=== PATIENT | female | born 1995 ===

== ENCOUNTER 2017-03-14 20:40 | Emergency (ER) | payer OTHER ==
[2017-03-14 21:32] VITALS: BMI 25.8
[2017-03-14 21:35] VITALS: TEMP 98.5
--- NOTE | 2017-03-14 22:11 | ED PDOC ---
Arrival/HPI - General Chief Complaint: GI Problem Time Seen by Provider: 03/14/17 21:43 Historian: Patient - History of Present Illness Narrative History of Present Illness (Text): 03/14/17 22:11 Tamia Melgoza is a 22 year old female who presents to the Emergency department complaining of hematemesis today. Patient states she has been experiencing hematemeisis since yesterday with associated upper abdominal pain. Patient denies any fever, chills, chest pain, shortness of breath, diarrhea, urinary symptoms, back pain, neck pain, headache, dizziness, or any other complaints. Time/Duration: Other (today) Symptom Onset: Gradual Symptom Course: Unchanged Activities at Onset: Rest, Light Context: Home Past Medical History - Provider Review Nursing Documentation Reviewed: Yes - Reproductive Menopause: No - Cardiac Hx Cardiac Disorders: No - Pulmonary Hx Respiratory Disorders: No - Neurological Hx Neurological Disorder: No - HEENT Hx HEENT Disorder: No - Renal Hx Renal Disorder: No - Endocrine/Metabolic Hx Endocrine Disorders: No - Hematological/Oncological Hx Blood Disorders: No - Integumentary Hx Dermatological Disorder: No - Musculoskeletal/Rheumatological Hx Musculoskeletal Disorders: No - Gastrointestinal Hx Gastrointestinal Disorders: Yes Hx Gastritis: Yes - Genitourinary/Gynecological Hx Genitourinary Disorders: No - Psychiatric Hx Psychophysiologic Disorder: No Hx Substance Use: No - Surgical History Hx Orthopedic Surgery: Yes (knee 2014) - Anesthesia Hx Anesthesia: Yes Hx Anesthesia Reactions: No Hx Malignant Hyperthermia: No Family/Social History - Physician Review Nursing Documentation Reviewed: Yes Family/Social History: No Known Family HX Smoking Status: Never Smoked Hx Alcohol Use: No Hx Substance Use: No Allergies/Home Meds Allergies/Adverse Reactions: Allergies No Known Allergies Allergy (Verified 03/14/17 22:02) Review of Systems - Physician Review All systems were reviewed & negative as marked: Yes - Review of Systems Constitutional: Normal. absent: Fevers Eyes: Normal ENT: Normal Respiratory: Normal. absent: SOB, Cough Cardiovascular: Normal. absent: Chest Pain Gastrointestinal: Abdominal Pain, Hematemesis Genitourinary Female: Normal. absent: Dysuria, Frequency, Hematuria, Urine Output Changes Musculoskeletal: Normal. absent: Back Pain, Neck Pain Skin: Normal. absent: Rash Neurological: Normal. absent: Headache, Dizziness Endocrine: Normal Hemo/Lymphatic: Normal Psychiatric: Normal Physical Exam Vital Signs Reviewed: Yes Vital Signs Temp Pulse Resp BP Pulse Ox 03/15/17 01:13 79 18 121/63 98 03/14/17 23:00 75 18 115/71 99 03/14/17 21:35 123/82 03/14/17 21:32 98.5 F 79 16 98 Temperature: Afebrile Blood Pressure: Normal Pulse: Regular Respiratory Rate: Normal Appearance: Positive for: Well-Appearing, Non-Toxic, Comfortable Pain Distress: None Mental Status: Positive for: Alert and Oriented X 3 - Systems Exam Head: Present: Atraumatic, Normocephalic Pupils: Present: PERRL Extroacular Muscles: Present: EOMI Conjunctiva: Present: Normal Mouth: Present: Moist Mucous Membranes Neck: Present: Normal Range of Motion Respiratory/Chest: Present: Clear to Auscultation, Good Air Exchange. No: Respiratory Distress, Accessory Muscle Use Cardiovascular: Present: Regular Rate and Rhythm, Normal S1, S2. No: Murmurs Abdomen: Present: Normal Bowel Sounds. No: Tenderness, Distention, Peritoneal Signs Back: Present: Normal Inspection Upper Extremity: Present: Normal Inspection. No: Cyanosis, Edema Lower Extremity: Present: Normal Inspection. No: Edema Neurological: Present: GCS=15, CN II-XII Intact, Speech Normal Skin: Present: Warm, Dry, Normal Color. No: Rashes Psychiatric: Present: Alert, Oriented x 3, Normal Insight, Normal Concentration Medical Decision Making ED Course and Treatment: 03/14/17 22:11 Impression: 22 year old female complaining of upper abdominal pain and hematemesis today. Plan: -- EKG -- Labs, amylase, lipase, cardiac enzymes, blood type and screen -- Zofran -- NG tube -- Reassess and disposition Progress Notes: Reviewed EKG, NSR at 71 bpm. Sinus arrhythmia. No acute changes. 03/15/17 01:04 Labs within normal limits, no blood noted in NG tube output. On re-evaluation, the patient feels better and is in no acute distress. I have discussed the results and plan with the patient, who expresses understanding. Patient in agreement with plan to discharged home. Patient is stable for discharge. Patient was instructed to follow up with physician/clinic in 1-2 days or return if symptoms worsen or new concerning symptoms arise. Re-evaluation Time: 01:07 Reassessment Condition: Re-examined, Improved - Lab Interpretations Lab Results: 03/14/17 22:35 03/14/17 22:35 Lab Results 03/14/17 23:10: Blood Type Confirm A POSITIVE 03/14/17 22:35: Blood Type A POSITIVE, Antibody Screen Negative, BBK History Checked No verified bt 03/14/17 22:35: Sodium 139, Potassium 3.9, Chloride 103, Carbon Dioxide 26, Anion Gap 14, BUN 9, Creatinine 0.6, Est GFR ( Amer) > 60, Est GFR (Non- Af Amer) > 60, Random Glucose 100, Calcium 9.1, Total Bilirubin 0.5, AST 23, ALT 30, Alkaline Phosphatase 80, Lactate Dehydrogenase 417, Total Creatine Kinase 91, Troponin I < 0.01, Total Protein 7.4, Albumin 3.8, Globulin 3.6, Albumin/Globulin Ratio 1.1, Amylase 109, Lipase 192 03/14/17 22:35: PT 10.2, INR 0.94, APTT 27.2 03/14/17 22:35: WBC 6.3, RBC 4.45, Hgb 13.7, Hct 39.0, MCV 87.6, MCH 30.8, MCHC 35.1, RDW 12.4, Plt Count 283, MPV 10.0, Gran % 45.5 L, Lymph % (Auto) 45.1 H, Ida % (Auto) 7.0 H, Eos % (Auto) 1.9, Baso % (Auto) 0.5, Gran # 2.86, Lymph # 2.8, Ida # 0.4, Eos # 0.1, Baso # 0.03 I have reviewed the lab results: Yes - EKG Interpretation Interpreted by ED Physician: Yes Type: 12 lead EKG - Medication Orders Current Medication Orders: Discontinued Medications Morphine Sulfate (Morphine) 2 mg IVP STAT STA Stop: 03/14/17 23:30 Last Admin: 03/15/17 00:21 Dose: 2 mg Ondansetron HCl (Zofran Inj) 4 mg IVP STAT STA Stop: 03/14/17 22:13 Last Admin: 03/14/17 23:02 Dose: Not Given Non-Admin Reason: Patient Refused Ondansetron HCl (Zofran Inj) Confirm Administered Dose 4 mg .ROUTE .STK-MED ONE Stop: 03/14/17 22:21 Last Admin: 03/15/17 00:21 Dose: Pantoprazole Sodium (Protonix Inj) 40 mg IVP ONCE STA Stop: 03/14/17 23:50 Last Admin: 03/15/17 00:21 Dose: 40 mg - Cassieibe Statement The provider has reviewed the documentation as recorded by the Cassieibrashad Pham All medical record entries made by the Cassieibrashad were at my direction and personally dictated by me. I have reviewed the chart and agree that the record accurately reflects my personal performance of the history, physical exam, medical decision making, and the department course for this patient. I have also personally directed, reviewed, and agree with the discharge instructions and disposition. Disposition/Present on Arrival - Present on Arrival Any Indicators Present on Arrival: No History of DVT/PE: No History of Uncontrolled Diabetes: No Urinary Catheter: No History of Decub. Ulcer: No History Surgical Site Infection Following: None - Disposition Have Diagnosis and Disposition been Completed?: Yes Diagnosis: Gastritis Disposition: HOME/ ROUTINE Disposition Time: 01:08 Condition: GOOD Discharge Instructions (ExitCare): Gastritis (ED) Prescriptions: Pantoprazole Sodium [Protonix] 40 mg PO DAILY #14 ect Ondansetron [Zofran Odt] 8 mg PO TID PRN #10 odt PRN Reason: Nausea/Vomiting
[2017-03-14 22:51] LABS: ADD MANUAL DIFF? NO
[2017-03-14 22:54] LABS: BASO # 0.03 K/mm3 (0.0-2.0); BASO % 0.5 % (0.0-3.0); EOS # 0.1 (0.0-0.7); EOS % 1.9 % (1.5-5.0); GRAN # 2.86 (1.4-6.5); GRAN % 45.5 % (50.0-68.0); LYMPH # 2.8 (1.2-3.4); LYMPH % 45.1 % (22.0-35.0); MEAN CELL VOLUME 87.6 fL (80.0-105.0); MEAN CORPUSCULAR HEMOGLOBIN 30.8 pg (25.0-35.0); MEAN CORPUSCULAR HGB CONC 35.1 g/dl (31.0-37.0); MONO # 0.4 (0.1-0.6); PLATELET COUNT 283 10^3/uL (120.0-450.0); RED CELL DISTRIBUTION WIDTH 12.4 % (11.5-14.5); WHITE BLOOD COUNT 6.3 10^3/ul (4.5-11.0)
[2017-03-14 23:06] LABS: INR 0.94 (0.93-1.08); PARTIAL THROMBOPLASTIN TIME 27.2 Seconds (23.7-30.8)
[2017-03-14 23:25] LABS: ALB/GLOB RATIO 1.1 (1.1-1.8); ALKALINE PHOSPHATASE 80 U/L (38-133); ALT/SGPT 30 U/L (7-56); AMYLASE 109 U/L (35-125); AST/SGOT 23 U/L (15-39); BILIRUBIN,TOTAL 0.5 mg/dL (0.2-1.3); BLOOD UREA NITROGEN 9 mg/dL (7-21); CALCIUM 9.1 mg/dL (8.4-10.5); CARBON DIOXIDE 26 mmol/L (21-33); CHLORIDE 103 mmol/L (98-107); GFR AFRICAN-AMERICAN > 60; GLUCOSE,RANDOM 100 mg/dL (70-110); LIPASE 192 U/L (23-300); POTASSIUM 3.9 mmol/L (3.6-5.0); SODIUM 139 mmol/L (132-148); TOTAL PROTEIN 7.4 g/dL (5.8-8.3)
[2017-03-14] MEDS ORDERED: Morphine 2 mg/ml ISec IVP STA (23:29)
[2017-03-14 23:46] LABS: TROPONIN I < 0.01 ng/mL
[2017-03-15 00:56] VITALS: RESP 18
[2017-03-15 01:14] VITALS: BP 121/63; PULSE 79; O2SAT 98
--- NOTE | 2017-03-15 22:11 | CARD ---
APPROVED REPORT EKG Measurement Heart [id number] <Conclusion> Normal sinus rhythm with sinus arrhythmia Cannot rule out Anterior infarct, age undetermined Abnormal ECG
== END 2017-03-15 01:15 | disposition home or self-care (01) ==
LOC: ED 20:40
DX: K29.70 Gastritis, unspecified, without bleeding (principal)
CPT/HCPCS: 80053; 82150; 82550; 83615; 83690; 84484; 85025; 85610; 85730; 86850; 86900; 93005; 96374; 96375; 99285; C9113; J2270

== ENCOUNTER 2017-05-20 18:46 | Emergency (ER) | payer OTHER ==
[2017-05-20 19:15] VITALS: TEMP 98; BMI 27.4
[2017-05-20 21:38] VITALS: BP 105/68; PULSE 72; RESP 18; O2SAT 99
--- NOTE | 2017-05-20 21:57 | ED PDOC ---
Arrival/HPI - General Chief Complaint: Lower Extremity Problem/Injury Time Seen by Provider: 05/20/17 19:27 Historian: Patient - History of Present Illness Narrative History of Present Illness (Text): 05/20/17 21:42 A 22 year old female presents to the emergency department complaining of right knee pain and worsening swelling over the past few days. Patient denies any fall , trauma, fever, chills, nausea, vomiting, diarrhea, abdominal pain, urinary symptoms, chest pain, shortness of breath, cough or any other complaints. Patient reports a history of patellar repair 2 years ago in [facility]. Time/Duration: < week Symptom Course: Worsening Quality: Other Context: Other Past Medical History - Provider Review Nursing Documentation Reviewed: Yes - Cardiac Hx Cardiac Disorders: No - Pulmonary Hx Respiratory Disorders: No - Neurological Hx Neurological Disorder: No - HEENT Hx HEENT Disorder: No - Renal Hx Renal Disorder: No - Endocrine/Metabolic Hx Endocrine Disorders: No - Hematological/Oncological Hx Blood Disorders: No - Integumentary Hx Dermatological Disorder: No - Musculoskeletal/Rheumatological Hx Musculoskeletal Disorders: No - Gastrointestinal Hx Gastrointestinal Disorders: Yes Hx Gastritis: Yes Other/Comment: GI Bleed - Genitourinary/Gynecological Hx Genitourinary Disorders: No - Psychiatric Hx Psychophysiologic Disorder: No Hx Substance Use: No - Surgical History Hx Orthopedic Surgery: Yes (knee 2014) - Anesthesia Hx Anesthesia: Yes Hx Anesthesia Reactions: No Hx Malignant Hyperthermia: No Family/Social History - Physician Review Nursing Documentation Reviewed: Yes Family/Social History: No Known Family HX Smoking Status: Never Smoked Hx Alcohol Use: No Hx Substance Use: No Allergies/Home Meds Allergies/Adverse Reactions: Allergies No Known Allergies Allergy (Verified 03/14/17 22:02) Review of Systems - Physician Review All systems were reviewed & negative as marked: Yes - Review of Systems Constitutional: absent: Fevers, Night Sweats Respiratory: absent: SOB, Cough Cardiovascular: absent: Chest Pain Gastrointestinal: absent: Abdominal Pain, Diarrhea, Nausea, Vomiting Genitourinary Female: absent: Dysuria, Frequency, Hematuria, Urine Output Changes Musculoskeletal: Other (right knee pain and swelling) Physical Exam Vital Signs Reviewed: Yes Vital Signs Temp Pulse Resp BP Pulse Ox 05/20/17 21:37 72 18 105/68 99 05/20/17 19:13 98.0 F 78 16 104/63 98 Temperature: Afebrile Blood Pressure: Normal Pulse: Regular Respiratory Rate: Normal Appearance: Positive for: Well-Appearing, Non-Toxic, Comfortable Pain Distress: None Mental Status: Positive for: Alert and Oriented X 3 - Systems Exam Head: Present: Atraumatic, Normocephalic Pupils: Present: PERRL Extroacular Muscles: Present: EOMI Conjunctiva: Present: Normal Mouth: Present: Moist Mucous Membranes Neck: Present: Normal Range of Motion Respiratory/Chest: Present: Clear to Auscultation, Good Air Exchange. No: Respiratory Distress, Accessory Muscle Use Cardiovascular: Present: Regular Rate and Rhythm, Normal S1, S2. No: Murmurs Abdomen: Present: Normal Bowel Sounds. No: Tenderness, Distention, Peritoneal Signs Back: Present: Normal Inspection Upper Extremity: Present: Normal Inspection. No: Cyanosis, Edema Lower Extremity: Present: NORMAL PULSES, Tenderness (Mild tenderness over right patellar area), Swelling (Mild swelling to right knee), Neurovascularly Intact, Other (Right knee midline surgical scar, well healed). No: Edema, CALF TENDERNESS, Erythema, Deformity, Temperature Abnormalties Neurological: Present: GCS=15, CN II-XII Intact, Speech Normal Skin: Present: Warm, Dry, Normal Color. No: Rashes Psychiatric: Present: Alert, Oriented x 3, Normal Insight, Normal Concentration Medical Decision Making ED Course and Treatment: 05/20/17 21:42 Impression: A 22 year old female with right knee pain Plan: -- Right knee xray -- Motrin -- Reassess and disposition Progress Notes: Right knee xray showed no acute fracture. - RAD Interpretation Radiology Orders: 05/20/17 19:27 KNEE RIGHT 2 VIEWS (AP & LAT) [RAD] Stat - Medication Orders Current Medication Orders: Discontinued Medications Ibuprofen (Motrin Tab) 600 mg PO STAT STA Stop: 05/20/17 19:28 Last Admin: 05/20/17 20:35 Dose: 600 mg - Scribe Statement The provider has reviewed the documentation as recorded by the Vandana Howard Provider Scribe Attestation: All medical record entries made by the Scribe were at my direction and personally dictated by me. I have reviewed the chart and agree that the record accurately reflects my personal performance of the history, physical exam, medical decision making, and the department course for this patient. I have also personally directed, reviewed, and agree with the discharge instructions and disposition. Disposition/Present on Arrival - Present on Arrival Any Indicators Present on Arrival: No History of DVT/PE: No History of Uncontrolled Diabetes: No Urinary Catheter: No History of Decub. Ulcer: No History Surgical Site Infection Following: None - Disposition Have Diagnosis and Disposition been Completed?: Yes Diagnosis: Knee sprain Disposition: HOME/ ROUTINE Disposition Time: 20:45 Condition: GOOD Discharge Instructions (ExitCare): Knee Sprain (ED) Print Language: DIVEHI Additional Instructions: Thank you for letting us take care of you today. Your provider was Dr. Navarro. You were treated for a knee sprain. The emergency medical care you received today was directed at your acute symptoms. If you were prescribed any medication, please fill it and take as directed. It may take several days for your symptoms to resolve. Return to the Emergency Department if your symptoms worsen, do not improve, or if you have any other problems. Please contact your doctor or call one of the physicians/clinics you have been referred to that are listed on the Patient Visit Information form that is included in your discharge packet. Bring any paperwork you were given at discharge with you along with any medications you are taking to your follow up visit. Our treatment cannot replace ongoing medical care by a primary care provider (PCP) outside of the emergency department. Thank you for allowing the [facility] team to be part of your care today. Follow up with the clinic for outpatient care. Prescriptions: Ibuprofen [Motrin] 600 mg PO Q6 PRN #20 tab PRN Reason: Pain, Moderate (4-7) Referrals: [facility] [Outside] - Follow up with primary [facility] [Outside] - Follow up with primary
--- NOTE | 2017-05-21 08:27 | RAD ---
PROCEDURE: Right Knee Radiographs. HISTORY: r/o fx COMPARISON: None. FINDINGS: BONES: No acute fracture. There are least 3 smooth ossific bodies seen about the anterior knee, 2 inferior to patella and 1 lateral to the patella, all anteriorly situated. Questionable intracapsular osseous bodies. JOINTS: Normal. No osteoarthritis. JOINT EFFUSION: None. OTHER FINDINGS: None. IMPRESSION: Three smooth ossific densities, possible loose intracapsular osseous bodies. No acute fracture.
== END 2017-05-20 21:38 | disposition home or self-care (01) ==
LOC: ED 18:46
DX: S83.91XA Sprain of unspecified site of right knee, initial encounter (principal); X58.XXXA Exposure to other specified factors, initial encounter; Y93.89 Activity, other specified; Y92.89 Other specified places as the place of occurrence of the external cause

== ENCOUNTER 2017-06-04 14:41 | Emergency (ER) | payer OTHER ==
[2017-06-04 14:41] VITALS: BMI 27.4
--- NOTE | 2017-06-04 14:43 | ED PDOC ---
Arrival/HPI - General Time Seen by Provider: 06/04/17 14:42 Historian: Patient - History of Present Illness Narrative History of Present Illness (Text): 06/04/17 14:42 22 y/o female, no significant pmh, nkda, c/o throat pain and fever with back pain started this morning. Aching throat pain, aggravated by swallowing, subjective fever with tmax 98.9F, able to drink and eat, stated that she has generalized bodyache including the lower back pain, no numbness or tingling, no pelvic pain, no urinary symptoms, no night sweat, no dizziness, no other medical or psychological complaints. 06/04/17 15:07 Past Medical History - Provider Review Nursing Documentation Reviewed: Yes - Cardiac Hx Cardiac Disorders: No - Pulmonary Hx Respiratory Disorders: No - Neurological Hx Neurological Disorder: No - HEENT Hx HEENT Disorder: No - Renal Hx Renal Disorder: No - Endocrine/Metabolic Hx Endocrine Disorders: No - Hematological/Oncological Hx Blood Disorders: No - Integumentary Hx Dermatological Disorder: No - Musculoskeletal/Rheumatological Hx Musculoskeletal Disorders: No - Gastrointestinal Hx Gastrointestinal Disorders: Yes Hx Gastritis: Yes Other/Comment: GI Bleed - Genitourinary/Gynecological Hx Genitourinary Disorders: No - Psychiatric Hx Psychophysiologic Disorder: No Hx Substance Use: No - Surgical History Hx Orthopedic Surgery: Yes (knee 2014) - Anesthesia Hx Anesthesia: Yes Hx Anesthesia Reactions: No Hx Malignant Hyperthermia: No Family/Social History - Physician Review Nursing Documentation Reviewed: Yes Family/Social History: Unknown Family HX Smoking Status: Never Smoked Hx Alcohol Use: No Hx Substance Use: No Allergies/Home Meds Allergies/Adverse Reactions: Allergies No Known Allergies Allergy (Verified 03/14/17 22:02) Review of Systems - Review of Systems Constitutional: Fevers. absent: Fatigue Eyes: absent: Vision Changes ENT: Sore Throat. absent: Hearing Changes, Rhinorrhea Respiratory: absent: SOB, Cough, Sputum Cardiovascular: absent: Chest Pain Gastrointestinal: absent: Abdominal Pain, Diarrhea, Nausea, Vomiting Musculoskeletal: Back Pain, Myalgias. absent: Arthralgias, Neck Pain, Joint Swelling Skin: absent: Rash, Pruritis, Skin Lesions Hemo/Lymphatic: absent: Adenopathy Psychiatric: absent: Anxiety, Depression, Suicidal Ideation Physical Exam Vital Signs Reviewed: Yes Vital Signs Temp Pulse Resp BP Pulse Ox 06/04/17 14:56 98.9 F 81 18 133/83 100 Temperature: Afebrile Blood Pressure: Normal Pulse: Regular Respiratory Rate: Normal Appearance: Positive for: Well-Appearing, Non-Toxic, Comfortable Pain Distress: Moderate Mental Status: Positive for: Alert and Oriented X 3 - Systems Exam Head: Present: Atraumatic, Normocephalic Pupils: Present: PERRL Extroacular Muscles: Present: EOMI Conjunctiva: Present: Normal Mouth: Present: Moist Mucous Membranes, Normal Lips, Normal Tounge, Normal Teeth. No: Drooling Pharnyx: Present: EXUDATE, TONSILS ENLARGED. No: ERYTHEMA, Peritonsilar Swelling, Uvular Deviation, Muffled/Hoarse Voice, Strider, Soft Palate/Uvular Edema Neck: Present: Normal Range of Motion Respiratory/Chest: Present: Clear to Auscultation, Good Air Exchange. No: Respiratory Distress, Accessory Muscle Use, Wheezes, Decreased Breath Sounds, Rales, Retracting, Rhonchi, Tachypneic, Tender to Palpation, Other Cardiovascular: Present: Regular Rate and Rhythm, Normal S1, S2. No: Murmurs Abdomen: Present: Normal Bowel Sounds. No: Tenderness, Distention, Peritoneal Signs, Rebound, Guarding Back: Present: Normal Inspection. No: CVA Tenderness, Midline Tenderness, Paraspinal Tenderness Upper Extremity: Present: Normal Inspection. No: Cyanosis, Edema Lower Extremity: Present: Normal Inspection. No: Edema Neurological: Present: GCS=15, Speech Normal, Motor Func Grossly Intact, Gait Normal, Memory Normal Skin: Present: Warm, Dry, Normal Color. No: Rashes Psychiatric: Present: Alert, Oriented x 3, Normal Insight, Normal Concentration Medical Decision Making ED Course and Treatment: 06/04/17 15:05 -tylenol/toradol -rapid strept 06/04/17 16:13 -decadron 8mg and augmentin po ordered. 06/04/17 16:17 -rapid strept positive -Pt. is tolerating po, vitally stable, will discharge home. -Discharge home with augmentin, ibuprofen, salt water gargling, soft food diet, stay hydrated, follow up with your own pmd and ENT within 2 days, return to the ER for any new or worsening signs or symptoms. 06/04/17 16:18 - Medication Orders Current Medication Orders: Discontinued Medications Ketorolac Tromethamine (Toradol) 60 mg IM STAT STA Stop: 06/04/17 15:05 Last Admin: 06/04/17 15:33 Dose: 60 mg - PA / [employer]AIR / Resident Statement / has reviewed & agrees with the documentation as recorded. Disposition/Present on Arrival - Present on Arrival Any Indicators Present on Arrival: No History of DVT/PE: No History of Uncontrolled Diabetes: No Urinary Catheter: No History of Decub. Ulcer: No History Surgical Site Infection Following: None - Disposition Have Diagnosis and Disposition been Completed?: Yes Diagnosis: Tonsillitis Disposition: HOME/ ROUTINE Disposition Time: 15:10 Patient Plan: Discharge Patient Problems: Current Active Problems Problem Status Onset Tonsillitis Acute Condition: IMPROVED Additional Instructions: -Discharge home with augmentin, ibuprofen, salt water gargling, soft food diet, stay hydrated, follow up with your own pmd and ENT within 2 days, return to the ER for any new or worsening signs or symptoms. Prescriptions: Amoxicillin/Clavulanate [Augmentin 875 MG-125 MG] 1 tab PO BID #20 tab Ibuprofen [Motrin Tab] 600 mg PO QID PRN #24 tab PRN Reason: Other Referrals: PCP,REJI [Primary Care Provider] - Follow up with primary [facility] [Outside] - Follow up with primary Luis Soto DO [Doctor [facility]] - Follow up with primary Forms: WORK NOTE
[2017-06-04 14:59] VITALS: TEMP 98.9; O2SAT 100
[2017-06-04 15:28] VITALS: PULSE 81
[2017-06-04] MEDS ORDERED: Amoxicillin-Clav 875-125 mg Tab PO STA (16:12)
[2017-06-04 16:28] VITALS: BP 130/80; RESP 17
== END 2017-06-04 16:40 | disposition home or self-care (01) ==
LOC: ED 14:41
DX: J03.90 Acute tonsillitis, unspecified (principal)
CPT/HCPCS: 87430; 96372; 99284; J1100; J1885

== ENCOUNTER 2017-08-03 15:11 | Emergency (ER) | payer OTHER ==
[2017-08-03 15:22] VITALS: TEMP 98.2
[2017-08-03] MEDS ORDERED: Sodium Chloride 0.9% 1,000 ML IV STA (15:29)
[2017-08-03] MEDS ORDERED: Sucralfate 1 gm/10 ml Oral Susp UD PO STA (15:30)
--- NOTE | 2017-08-03 15:35 | ED PDOC ---
Arrival/HPI - General Chief Complaint: Abdominal Pain Time Seen by Provider: 08/03/17 15:20 Historian: Patient, EMS - History of Present Illness Narrative History of Present Illness (Text): 08/03/17 15:32 22 y/o female, pmh including gastritis(not on any medications, last endoscopy about 4-5 months ago show there is chronic gastritis), nkda, c/o epigastric pain with nausea/vomiting x 2 days. Pt. stated that she was eating fried food and drinking soda at Thursday 11pm to 1am Thursday, went to sleep, woke up with the epigastric pain with nausea and vomiting about 4 times yesterday, went to work today and still having which she called for the ambulance, no pleuritic pain, no history of calf pain, no fever or chills, no night sweat, no dizziness , no palpitation, no no change in vision, no other medical or psychological complaints. EKG was perform as there was discrepancy on the cummunication as epigastric pain vs. chest pain initially but no chest pain as per patient. Past Medical History - Provider Review Nursing Documentation Reviewed: Yes - Infectious Disease Hx of Infectious Diseases: None - Cardiac Hx Cardiac Disorders: No - Pulmonary Hx Respiratory Disorders: No - Neurological Hx Neurological Disorder: No - HEENT Hx HEENT Disorder: No - Renal Hx Renal Disorder: No - Endocrine/Metabolic Hx Endocrine Disorders: No - Hematological/Oncological Hx Blood Disorders: No - Integumentary Hx Dermatological Disorder: No - Musculoskeletal/Rheumatological Hx Musculoskeletal Disorders: No - Gastrointestinal Hx Gastrointestinal Disorders: Yes Hx Gastritis: Yes Other/Comment: GI Bleed - Genitourinary/Gynecological Hx Genitourinary Disorders: No - Psychiatric Hx Psychophysiologic Disorder: No Hx Substance Use: No - Surgical History Hx Orthopedic Surgery: Yes (knee 2014) - Anesthesia Hx Anesthesia: Yes Hx Anesthesia Reactions: No Hx Malignant Hyperthermia: No Family/Social History - Physician Review Nursing Documentation Reviewed: Yes Family/Social History: Unknown Family HX Smoking Status: Never Smoked Hx Alcohol Use: No Hx Substance Use: No Allergies/Home Meds Allergies/Adverse Reactions: Allergies No Known Allergies Allergy (Verified 08/03/17 15:16) Review of Systems - Review of Systems Constitutional: absent: Fatigue, Fevers Eyes: absent: Vision Changes ENT: absent: Hearing Changes Respiratory: absent: SOB, Cough Cardiovascular: absent: Chest Pain Gastrointestinal: Abdominal Pain, Nausea, Vomiting. absent: Constipation, Diarrhea Skin: absent: Rash, Pruritis, Skin Lesions Neurological: absent: Headache Physical Exam Vital Signs Reviewed: Yes Vital Signs Temp Pulse Resp BP Pulse Ox 08/03/17 15:22 98.2 F 86 16 129/74 99 Temperature: Afebrile Blood Pressure: Normal Pulse: Regular Respiratory Rate: Normal Appearance: Positive for: Well-Appearing, Non-Toxic Pain Distress: Moderate Mental Status: Positive for: Alert and Oriented X 3 - Systems Exam Head: Present: Atraumatic, Normocephalic Pupils: Present: PERRL Extroacular Muscles: Present: EOMI Conjunctiva: Present: Normal Mouth: Present: Moist Mucous Membranes Neck: Present: Normal Range of Motion Respiratory/Chest: Present: Clear to Auscultation, Good Air Exchange. No: Respiratory Distress, Accessory Muscle Use Cardiovascular: Present: Regular Rate and Rhythm, Normal S1, S2. No: Murmurs Abdomen: Present: Tenderness (+epigastric tenderness), Normal Bowel Sounds. No : Distention, Peritoneal Signs, Rebound, Guarding Back: Present: Normal Inspection Upper Extremity: Present: Normal Inspection. No: Cyanosis, Edema Lower Extremity: Present: Normal Inspection. No: Edema Neurological: Present: GCS=15, Speech Normal, Motor Func Grossly Intact, Gait Normal, Memory Normal Skin: Present: Warm, Dry, Normal Color. No: Rashes Psychiatric: Present: Alert, Oriented x 3, Normal Insight, Normal Concentration Medical Decision Making ED Course and Treatment: 08/03/17 15:36 -labs/ua/lipase -ekg -cxr -sonogram gall bladder -IVF/pepcid and sulcrafate 08/03/17 16:38 -Urine Hcg: negative -EKG: NSR @ 94 BPM, no ST elevation or depression, no T wave inversion -Chest x-ray: no active disease -Gallbladder sonogram: no cholithiasis -Labs show: no acute findings. -UA show: no UTI -Pt. feels completely relief and no pain now. -Discharge home with prilosec, zofran, stay hydrated, avoid acidic/sour/spicy/ fried/grill food, follow up with your pmd for urea breath test as well to detect any bacteria, follow up with your own PMD and GI within 2 days, avoid alcohol/carbonated drinks, avoid eating 2 hours before sleeping, return to the ER for any new or worsening signs or symptoms. - Lab Interpretations Lab Results: 08/03/17 15:20 08/03/17 15:20 Lab Results 08/03/17 15:36: Urine Color Yellow, Urine Appearance Clear, Urine pH 6.0, Ur Specific [place] 1.025, Urine Protein Trace H, Urine Glucose (UA) Negative, Urine Ketones Trace H, Urine Blood Trace-intact H, Urine Nitrate Negative, Urine Bilirubin Negative, Urine Urobilinogen 0.2, Ur Leukocyte Esterase Negative , Urine RBC Pending, Urine WBC Pending 08/03/17 15:20: Sodium 141, Potassium 4.0, Chloride 107, Carbon Dioxide 23, Anion Gap 15, BUN 12, Creatinine 0.6, Est GFR ( Amer) > 60, Est GFR (Non- Af Amer) > 60, Random Glucose 85, Calcium 8.8, Total Bilirubin 0.3, AST 36, ALT 38, Alkaline Phosphatase 83, Total Protein 7.2, Albumin 4.0, Globulin 3.2, Albumin/Globulin Ratio 1.3, Lipase 189 08/03/17 15:20: WBC 7.2, RBC 4.40, Hgb 13.2, Hct 38.6, MCV 87.7, MCH 30.0, MCHC 34.2, RDW 12.4, Plt Count 258, MPV 10.4, Gran % 49.6 L, Lymph % (Auto) 42.5 H, [place] % (Auto) 6.1 H, Eos % (Auto) 1.5, Baso % (Auto) 0.3, Gran # 3.57, Lymph # 3.1, [place] # 0.4, Eos # 0.1, Baso # 0.02 I have reviewed the lab results: Yes Interpretation: No clinic. lab abnormalty - RAD Interpretation Radiology Orders: 08/03/17 15:29 CHEST PORTABLE [RAD] Stat 08/03/17 15:33 GALL BLADDER [US] Stat Chest xray: no active disease Gallbladder sonogram: HISTORY: epigastric pain, nauesa/vomiting x 2 days COMPARISON: None. TECHNIQUE: Sonographic evaluation of the right upper quadrant of the abdomen. FINDINGS: LIVER: Measures 15.0 cm in length. Normal echogenicity of the liver parenchyma. No mass. No intrahepatic bile duct dilatation. GALLBLADDER: The gallbladder is well distended without gallstones, wall thickening or pericholecystic fluid. The sonographic Dorado's sign is negative. COMMON BILE DUCT: Measures 3.0 mm. No stones. No dilatation. PANCREAS: Unremarkable as visualized. No mass. No ductal dilatation. RIGHT KIDNEY: Measures 11.0 cm in length. Normal echogenicity. No calculus, mass, or hydronephrosis. AORTA: No aneurysmal dilatation. IVC: Unremarkable. OTHER FINDINGS: None . IMPRESSION: No cholelithiasis or biliary dilatation. 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 - Medication Orders Current Medication Orders: Discontinued Medications Famotidine (Pepcid) 20 mg IVP STAT STA Stop: 08/03/17 15:30 Last Admin: 08/03/17 15:40 Dose: 20 mg Sodium Chloride (Sodium Chloride 0.9%) 1,000 mls @ 999 mls/hr IV .Q1H1M STA Stop: 08/03/17 16:29 Last Admin: 08/03/17 15:40 Dose: 999 mls/hr Metoclopramide HCl (Reglan) 10 mg IVP STAT STA Stop: 08/03/17 15:30 Last Admin: 08/03/17 15:40 Dose: 10 mg Sucralfate (Carafate Oral Susp) 1 gm PO STAT STA Stop: 08/03/17 15:31 Last Admin: 08/03/17 15:40 Dose: 1 gm - PA / [employer] / Resident Statement / has reviewed & agrees with the documentation as recorded. Disposition/Present on Arrival - Present on Arrival Any Indicators Present on Arrival: No History of DVT/PE: No History of Uncontrolled Diabetes: No Urinary Catheter: No History of Decub. Ulcer: No History Surgical Site Infection Following: None - Disposition Have Diagnosis and Disposition been Completed?: Yes Diagnosis: GERD (gastroesophageal reflux disease), Vomiting Disposition: HOME/ ROUTINE Disposition Time: 16:38 Patient Plan: Discharge Condition: IMPROVED Additional Instructions: -Discharge home with prilosec, zofran, stay hydrated, avoid acidic/sour/spicy/ fried/grill food, follow up with your pmd for urea breath test as well to detect any bacteria, follow up with your own PMD and GI within 2 days, avoid alcohol/carbonated drinks, avoid eating 2 hours before sleeping, return to the ER for any new or worsening signs or symptoms. Prescriptions: Omeprazole Magnesium [Prilosec Otc] 20 mg PO DAILY #21 tcp Ondansetron [Zofran Odt] 4 mg PO TID PRN #10 tab.rapdis PRN Reason: Other Referrals: PCP,NO [Primary Care Provider] - Follow up with primary [facility] [place] [Outside] - Follow up with primary Sugey YOUNG,MD Ander [Medical Doctor] - Follow up with primary Forms: [facility] (Algerian), WORK NOTE
[2017-08-03 15:55] LABS: BASO # 0.02 K/mm3 (0.0-2.0); BASO % 0.3 % (0.0-3.0); EOS # 0.1 (0.0-0.7); EOS % 1.5 % (1.5-5.0); GRAN # 3.57 (1.4-6.5); GRAN % 49.6 % (50.0-68.0); HEMATOCRIT 38.6 % (36.0-48.0); LYMPH # 3.1 (1.2-3.4); LYMPH % 42.5 % (22.0-35.0); MEAN CELL VOLUME 87.7 fl (80.0-105.0); MEAN CORPUSCULAR HGB CONC 34.2 g/dl (31.0-37.0); MEAN PLATELET VOLUME 10.4 fl (7.0-11.0); MONO # 0.4 (0.1-0.6); MONO % 6.1 % (1.0-6.0); RED CELL DISTRIBUTION WIDTH 12.4 % (11.5-14.5); WHITE BLOOD COUNT 7.2 10^3/ul (4.5-11.0)
[2017-08-03 16:04] LABS: ALB/GLOB RATIO 1.3 (1.1-1.8); ALKALINE PHOSPHATASE 83 U/L (38-126); ALT/SGPT 38 U/L (7-56); AST/SGOT 36 U/L (14-36); BILIRUBIN,TOTAL 0.3 mg/dL (0.2-1.3); BLOOD UREA NITROGEN 12 mg/dL (7-21); CALCIUM 8.8 mg/dL (8.4-10.5); CARBON DIOXIDE 23 mmol/L (21-33); CHLORIDE 107 mmol/L (98-107); GFR AFRICAN-AMERICAN > 60; GLUCOSE,RANDOM 85 mg/dL (70-110); LIPASE 189 U/L (23-300); SODIUM 141 mmol/L (132-148); TOTAL PROTEIN 7.2 g/dL (5.8-8.3)
[2017-08-03 16:17] LABS: URINE BILIRUBIN NEGATIVE (NEGATIVE); URINE BLOOD TRACE-INTACT (NEGATIVE); URINE GLUCOSE (UA) NEGATIVE (NEGATIVE); URINE KETONE TRACE mg/dL (NEGATIVE); URINE LEUKOCYTE ESTERASE NEGATIVE Leu/uL (NEGATIVE); URINE PROTEIN TRACE mg/dL (<30 mg/dL); URINE UROBILINOGEN 0.2 E.U./dL (<1 E.U./dL)
[2017-08-03 16:18] LABS: URINE APPEARANCE CLEAR (CLEAR); URINE COLOR YELLOW (YELLOW)
--- NOTE | 2017-08-03 16:28 | US ---
HISTORY: epigastric pain, nauesa/vomiting x 2 days COMPARISON: None. TECHNIQUE: Sonographic evaluation of the right upper quadrant of the abdomen. FINDINGS: LIVER: Measures 15.0 cm in length. Normal echogenicity of the liver parenchyma. No mass. No intrahepatic bile duct dilatation. GALLBLADDER: The gallbladder is well distended without gallstones, wall thickening or pericholecystic fluid. The sonographic Dorado's sign is negative. COMMON BILE DUCT: Measures 3.0 mm. No stones. No dilatation. PANCREAS: Unremarkable as visualized. No mass. No ductal dilatation. RIGHT KIDNEY: Measures 11.0 cm in length. Normal echogenicity. No calculus, mass, or hydronephrosis. AORTA: No aneurysmal dilatation. IVC: Unremarkable. OTHER FINDINGS: None . IMPRESSION: No cholelithiasis or biliary dilatation.
--- NOTE | 2017-08-03 16:33 | RAD ---
HISTORY: medical clearance COMPARISON: No prior. FINDINGS: LUNGS: The lungs are well inflated and clear. PLEURA: No significant pleural effusion identified, no pneumothorax apparent. CARDIOVASCULAR: Normal. OSSEOUS STRUCTURES: No significant abnormalities. VISUALIZED UPPER ABDOMEN: Normal. OTHER FINDINGS: None. IMPRESSION: No active pulmonary disease.
[2017-08-03 16:39] LABS: URINE BACTERIA MOD (NEG); URINE RBC 0 - 2 /hpf (0-2)
[2017-08-03 17:12] VITALS: BP 117/70; PULSE 88; RESP 18; O2SAT 100
--- NOTE | 2017-08-03 20:42 | CARD ---
APPROVED REPORT EKG Measurement Heart [id number] <Conclusion> Normal sinus rhythm with sinus arrhythmia Normal ECG
== END 2017-08-03 17:12 | disposition home or self-care (01) ==
LOC: ED 15:11
DX: K21.9 Gastro-esophageal reflux disease without esophagitis (principal); R11.10 Vomiting, unspecified
CPT/HCPCS: 71010; 76705; 80053; 81001; 83690; 85025; 93005; 96374; 96375; 99285; J2765; J7040

== ENCOUNTER 2017-11-30 13:58 | Emergency (ER) | payer OTHER ==
[2017-11-30 15:23] VITALS: BMI 31.0
--- NOTE | 2017-11-30 15:43 | ED PDOC ---
Arrival/HPI - General Chief Complaint: Abdominal Pain Time Seen by Provider: 11/30/17 15:34 Historian: Patient - History of Present Illness Narrative History of Present Illness (Text): 11/30/17 15:38 A 32 year old female, with no significant past medical history, presents to the emergency department complaining of heavy menstrual bleeding and cramps. The patient notes that last month she did not get her menstrual period. The patient states that she normally has regular periods. The patient denies fevers, chills , headache, dizziness, chest pain, shortness of breath, dyspnea on exertion, cough, nausea, vomiting, diarrhea, back pain, neck pain, urinary/bowel changes, or any other complaint. PMD: None Time/Duration: Other (Today) Symptom Onset: Sudden Symptom Course: Unchanged Activities at Onset: Rest, Light Context: Home Past Medical History - Provider Review Nursing Documentation Reviewed: Yes - Infectious Disease Hx of Infectious Diseases: None - Cardiac Hx Cardiac Disorders: No - Pulmonary Hx Respiratory Disorders: No - Neurological Hx Neurological Disorder: No - HEENT Hx HEENT Disorder: No - Renal Hx Renal Disorder: No - Endocrine/Metabolic Hx Endocrine Disorders: No - Hematological/Oncological Hx Blood Disorders: No - Integumentary Hx Dermatological Disorder: No - Musculoskeletal/Rheumatological Hx Musculoskeletal Disorders: No - Gastrointestinal Hx Gastrointestinal Disorders: Yes Hx Gastritis: Yes Other/Comment: GI Bleed - Genitourinary/Gynecological Hx Genitourinary Disorders: No - Psychiatric Hx Psychophysiologic Disorder: No Hx Substance Use: No - Surgical History Hx Orthopedic Surgery: Yes (knee 2014) - Anesthesia Hx Anesthesia: Yes Hx Anesthesia Reactions: No Hx Malignant Hyperthermia: No Family/Social History - Physician Review Nursing Documentation Reviewed: Yes Family/Social History: No Known Family HX Smoking Status: Never Smoked Hx Alcohol Use: No Hx Substance Use: No Allergies/Home Meds Allergies/Adverse Reactions: Allergies No Known Allergies Allergy (Verified 08/03/17 15:16) Review of Systems - Physician Review All systems were reviewed & negative as marked: Yes - Review of Systems Constitutional: absent: Fevers, Night Sweats Respiratory: absent: SOB, Cough Cardiovascular: absent: Chest Pain, [place] Gastrointestinal: Abdominal Pain (abdominal cramping). absent: Stool Changes, Diarrhea, Nausea, Vomiting Genitourinary Female: Other (Heavy menstrual bleeding.) Musculoskeletal: absent: Back Pain, Neck Pain Neurological: absent: Headache, Dizziness Physical Exam Vital Signs Reviewed: Yes Vital Signs Temp Pulse Resp BP Pulse Ox 11/30/17 15:28 98.3 F 72 18 107/71 98 Temperature: Afebrile Blood Pressure: Normal Pulse: Regular Respiratory Rate: Normal Appearance: Positive for: Well-Appearing, Non-Toxic, Comfortable Pain Distress: None Mental Status: Positive for: Alert and Oriented X 3 - Systems Exam Head: Present: Atraumatic, Normocephalic Pupils: Present: PERRL Extroacular Muscles: Present: EOMI Conjunctiva: Present: Normal Mouth: Present: Moist Mucous Membranes Neck: Present: Normal Range of Motion Respiratory/Chest: Present: Clear to Auscultation, Good Air Exchange. No: Respiratory Distress, Accessory Muscle Use Cardiovascular: Present: Regular Rate and Rhythm, Normal S1, S2. No: Murmurs Abdomen: Present: Normal Bowel Sounds. No: Tenderness, Distention, Peritoneal Signs Back: Present: Normal Inspection Upper Extremity: Present: Normal Inspection. No: Cyanosis, Edema Lower Extremity: Present: Normal Inspection. No: Edema Neurological: Present: GCS=15, CN II-XII Intact, Speech Normal Skin: Present: Warm, Dry, Pale (Slightly pale) Psychiatric: Present: Alert, Oriented x 3, Normal Insight, Normal Concentration Medical Decision Making ED Course and Treatment: 11/30/17 15:45 Impression: A 22 year old female presents to the emergency department complaining of heavy menstrual bleeding and cramping. Plan: -- Toradol -- Labs -- Reassess and disposition Progress Notes: - Lab Interpretations Lab Results: 11/30/17 17:40 Lab Results 11/30/17 17:40: WBC 7.4, RBC 4.14, Hgb 12.3, Hct 35.9 L, MCV 86.7, MCH 29.7, MCHC 34.3, RDW 12.9, Plt Count 254, MPV 10.3, Gran % 50.3, Lymph % (Auto) 39.8 H , [place] % (Auto) 7.7 H, Eos % (Auto) 1.9, Baso % (Auto) 0.3, Gran # 3.71, Lymph # 2.9, [place] # 0.6, Eos # 0.1, Baso # 0.02 11/30/17 17:14: Urine HCG, Qual Negative I have reviewed the lab results: Yes - Medication Orders Current Medication Orders: Discontinued Medications Ketorolac Tromethamine (Toradol) 60 mg IM STAT STA Stop: 11/30/17 15:39 Last Admin: 11/30/17 16:59 Dose: 60 mg MAR Pain Assessment Document 11/30/17 16:59 (Rec: 11/30/17 17:00 [id number]) Pain Reassessment Is this a pain reassessment? Yes Presence of Pain Presence of Pain Yes Location Pain Location Body Site Abdomen Description Description Cramping Pain Behavior Moaning Irritability IM Administration Charges Document 11/30/17 16:59 RG (Rec: 11/30/17 17:00 [id number]) Injection Site MAR Injection Site Right Deltoid Charges for Administration # of IM Administrations 1 - Scribe Statement The provider has reviewed the documentation as recorded by the Scribe Laurie Barros Provider Scribe Attestation: All medical record entries made by the Scribe were at my direction and personally dictated by me. I have reviewed the chart and agree that the record accurately reflects my personal performance of the history, physical exam, medical decision making, and the department course for this patient. I have also personally directed, reviewed, and agree with the discharge instructions and disposition. Disposition/Present on Arrival - Present on Arrival Any Indicators Present on Arrival: No History of DVT/PE: No History of Uncontrolled Diabetes: No Urinary Catheter: No History of Decub. Ulcer: No History Surgical Site Infection Following: None - Disposition Have Diagnosis and Disposition been Completed?: Yes Diagnosis: Dysmenorrhea Disposition: HOME/ ROUTINE Disposition Time: 18:15 Patient Plan: Discharge Patient Problems: Current Active Problems Problem Status Onset Dysmenorrhea Acute Condition: STABLE Additional Instructions: see your manager legal for further management Forms: [employer] (Kittitian)
[2017-11-30 17:49] LABS: BASO # 0.02 K/mm3 (0.0-2.0); BASO % 0.3 % (0.0-3.0); EOS # 0.1 (0.0-0.7); EOS % 1.9 % (1.5-5.0); GRAN # 3.71 (1.4-6.5); GRAN % 50.3 % (50.0-68.0); HEMOGLOBIN 12.3 g/dL (12.0-16.0); LYMPH # 2.9 (1.2-3.4); LYMPH % 39.8 % (22.0-35.0); MEAN CELL VOLUME 86.7 fl (80.0-105.0); MEAN CORPUSCULAR HEMOGLOBIN 29.7 pg (25.0-35.0); MEAN CORPUSCULAR HGB CONC 34.3 g/dl (31.0-37.0); MEAN PLATELET VOLUME 10.3 fl (7.0-11.0); MONO # 0.6 (0.1-0.6); MONO % 7.7 % (1.0-6.0); RBC 4.14 10^6/uL (3.5-6.1); RED CELL DISTRIBUTION WIDTH 12.9 % (11.5-14.5); WHITE BLOOD COUNT 7.4 10^3/ul (4.5-11.0)
[2017-11-30 18:44] VITALS: BP 110/65; PULSE 75; RESP 16; TEMP 98.5; O2SAT 100
== END 2017-11-30 18:30 | disposition home or self-care (01) ==
LOC: ED 13:58
DX: N94.6 Dysmenorrhea, unspecified (principal)
CPT/HCPCS: 84703; 85025; 96372; 99283; J1885

== ENCOUNTER 2017-12-01 12:25 | Emergency (ER) | payer OTHER ==
[2017-12-01 12:25] VITALS: BMI 31.0
[2017-12-01 13:02] VITALS: BP 110/72; PULSE 76; RESP 18; TEMP 98.4; O2SAT 99
== END 2017-12-01 18:24 | disposition left against medical advice (07) ==
LOC: ED 12:25
DX: Z02.89 Encounter for other administrative examinations (principal); R10.9 Unspecified abdominal pain

== ENCOUNTER 2018-06-24 23:16 | Emergency (ER) | payer SELFPAY ==
[2018-06-24 23:22] VITALS: BMI 26.6
[2018-06-24 23:33] VITALS: TEMP 98.8
[2018-06-25 00:42] LABS: BASO # 0.02 K/mm3 (0.0-2.0); BASO % 0.2 % (0.0-3.0); EOS % 0.2 % (1.5-5.0); GRAN # 5.89 (1.4-6.5); GRAN % 65.2 % (50.0-68.0); HEMOGLOBIN 13.4 g/dL (12.0-16.0); LYMPH # 2.6 (1.2-3.4); LYMPH % 28.5 % (22.0-35.0); MEAN CELL VOLUME 85.7 fl (80.0-105.0); MEAN PLATELET VOLUME 10.1 fl (7.0-11.0); MONO # 0.5 (0.1-0.6); MONO % 5.9 % (1.0-6.0); RBC 4.47 10^6/uL (3.5-6.1); RED CELL DISTRIBUTION WIDTH 12.4 % (11.5-14.5)
[2018-06-25] MEDS ORDERED: Alum-Mag Hydrox-Simethicone Susp (30 mL) PO STA (00:48)
[2018-06-25] MEDS ORDERED: Atrop/Hyosc/Scopal/PB Elixir (120 ml) PO STA (00:48)
[2018-06-25 00:49] LABS: ALB/GLOB RATIO 1.3 (1.1-1.8); ALBUMIN 4.7 g/dL (3.0-4.8); ALT/SGPT 23 U/L (7-56); AST/SGOT 25 U/L (14-36); BLOOD UREA NITROGEN 10 mg/dL (7-21); CALCIUM 9.4 mg/dL (8.4-10.5); GFR AFRICAN-AMERICAN > 60; GFR NON-AFRICAN AMERICAN > 60
[2018-06-25 00:58] LABS: ACETAMINOPHEN < 10.0 ug/ml (10.0-20.0); SALICYLATE < 1 mg/dL (2.0-20.0)
[2018-06-25 00:59] LABS: URINE BILIRUBIN SMALL (NEGATIVE); URINE BLOOD SMALL (NEGATIVE); URINE GLUCOSE (UA) NEGATIVE (NEGATIVE); URINE LEUKOCYTE ESTERASE NEGATIVE Leu/uL (NEGATIVE); URINE PROTEIN 100 mg/dL (<30 mg/dL)
--- NOTE | 2018-06-25 01:00 | ED PDOC ---
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 Patient states that her boyfriend left her earlier tonight, and that she feels like she wants to . Patient tried to drink bleach, but states she could not bring herself to do it. Patient does not smoke, drink, or do drugs. Patient denies any fever, chills, headache, dizziness, chest pain, shortness of breath, cough, abdominal pain, nausea, vomiting, diarrhea, back pain, neck pain, or any other complaint. Time/Duration: Prior to Arrival Symptom Course: Unchanged Activities at Onset: Light Context: Home Past Medical History - Provider Review Nursing Documentation Reviewed: Yes - Infectious Disease Hx of Infectious Diseases: None - Cardiac Hx Cardiac Disorders: No - Pulmonary Hx Respiratory Disorders: No - Neurological Hx Neurological Disorder: No - HEENT Hx HEENT Disorder: No - Renal Hx Renal Disorder: No - Endocrine/Metabolic Hx Endocrine Disorders: No - Hematological/Oncological Hx Blood Disorders: No - Integumentary Hx Dermatological Disorder: No - Musculoskeletal/Rheumatological Hx Musculoskeletal Disorders: No - Gastrointestinal Hx Gastrointestinal Disorders: Yes Hx Gastritis: Yes Other/Comment: GI Bleed - Genitourinary/Gynecological Hx Genitourinary Disorders: No - Psychiatric Hx Psychophysiologic Disorder: No Hx Substance Use: No - Surgical History Hx Orthopedic Surgery: Yes (knee 2014) - Anesthesia Hx Anesthesia: Yes Hx Anesthesia Reactions: No Hx Malignant Hyperthermia: No Family/Social History - Physician Review Nursing Documentation Reviewed: Yes Family/Social History: No Known Family HX Smoking Status: Never Smoked Hx Alcohol Use: No Hx Substance Use: No Allergies/Home Meds Allergies/Adverse Reactions: Allergies No Known Allergies Allergy (Verified 06/24/18 23:19) Home Medications: Home Meds Medication Instructions Recorded Confirmed No Known Home Med 06/24/18 06/24/18 Review of Systems - Review of Systems Constitutional: Normal. absent: Fevers, Night Sweats Eyes: Normal ENT: Normal Respiratory: Normal. absent: SOB, Cough Cardiovascular: Normal. absent: Chest Pain Gastrointestinal: Normal. absent: Abdominal Pain, Diarrhea, Nausea, Vomiting Genitourinary Female: Normal Musculoskeletal: Normal. absent: Back Pain, Neck Pain Skin: Normal Neurological: Normal. absent: Headache, Dizziness Endocrine: Normal Hemo/Lymphatic: Normal Psychiatric: Suicidal Ideation Physical Exam Vital Signs Reviewed: Yes Vital Signs Temp Pulse Resp BP Pulse Ox 06/25/18 04:01 80 18 127/76 100 06/24/18 23:32 98.8 F 100 H 16 144/87 99 Temperature: Afebrile Blood Pressure: Normal Pulse: Tachycardic Respiratory Rate: Normal Appearance: Positive for: Well-Appearing, Non-Toxic, Comfortable Pain Distress: None Mental Status: Positive for: Alert and Oriented X 3 - Systems Exam Head: Present: Atraumatic, Normocephalic Pupils: Present: PERRL Extroacular Muscles: Present: EOMI Conjunctiva: Present: Normal Mouth: Present: Moist Mucous Membranes Neck: Present: Normal Range of Motion Respiratory/Chest: Present: Clear to Auscultation, Good Air Exchange. No: Respiratory Distress, Accessory Muscle Use Cardiovascular: Present: Regular Rate and Rhythm, Normal S1, S2. No: Murmurs Abdomen: No: Tenderness, Distention, Peritoneal Signs Back: Present: Normal Inspection Upper Extremity: Present: Normal Inspection. No: Cyanosis, Edema Lower Extremity: Present: Normal Inspection. No: Edema Neurological: Present: GCS=15, CN II-XII Intact, Speech Normal Skin: Present: Warm, Dry, Normal Color. No: Rashes Psychiatric: Present: Alert, Oriented x 3, Normal Insight, Normal Concentration Medical Decision Making ED Course and Treatment: 06/25/18 01:01 Impression: 23 year old patient presents to the emergency department for evaluation s/p trying to harm herself. Plan: -- Labs -- EKG -- Chest X-ray -- Maalox plus -- Elixer -- Lidocaine -- Urinalysis -- AES Crisis Evaluation -- Reassess and disposition Prior Visits: Notes and results from previous visits were reviewed. Progress Notes: 06/25/18 01:04 EKG Reviewed, shows: Normal Sinus rhythm @ 86bpm Cannot rule out anterior infarct, age undetermined Abnormal EKG - Lab Interpretations Lab Results: 06/25/18 00:29 06/25/18 00:29 Lab Results 06/25/18 00:36: Urine Color Yellow, Urine Appearance Sl cloudy, Urine pH 6.0, Ur Specific [place] >= 1.030, Urine Protein 100 H, Urine Glucose (UA) Negative, Urine Ketones >=80, Urine Blood Small H, Urine Nitrate Negative, Urine Bilirubin Small H, Urine Urobilinogen 1.0 H, Ur Leukocyte Esterase Negative, Urine RBC 1 - 3, Urine WBC 0 - 2, Ur Epithelial Cells Many, Urine Bacteria Small , Urine Other Mucus, Urine HCG, Qual Negative 06/25/18 00:36: Urine Opiates Screen Negative, Urine Methadone Screen Negative, Ur Barbiturates Screen Negative, Ur Phencyclidine Scrn Negative, Ur Amphetamines Screen Negative, U Benzodiazepines Scrn Negative, U Oth Cocaine Metabols Negative, U Cannabinoids Screen Negative 06/25/18 00:29: Alcohol, Quantitative < 10 06/25/18 00:29: Salicylates < 1 L, Acetaminophen < 10.0 L 06/25/18 00:29: Sodium 145, Potassium 3.6, Chloride 106, Carbon Dioxide 25, Anion Gap 19, BUN 10, Creatinine 0.6 L, Est GFR ( Amer) > 60, Est GFR ( Non-Af Amer) > 60, Random Glucose 98, Calcium 9.4, Total Bilirubin 0.7, AST 25, ALT 23, Alkaline Phosphatase 93, Total Protein 8.2, Albumin 4.7, Globulin 3.5, Albumin/Globulin Ratio 1.3 06/25/18 00:29: WBC 9.0 D, RBC 4.47, Hgb 13.4, Hct 38.3, MCV 85.7, MCH 30.0, MCHC 35.0, RDW 12.4, Plt Count 270, MPV 10.1, Gran % 65.2, Lymph % (Auto) 28.5, [place] % (Auto) 5.9, Eos % (Auto) 0.2 L, Baso % (Auto) 0.2, Gran # 5.89, Lymph # ( Auto) 2.6, [place] # (Auto) 0.5, Eos # (Auto) 0.0, Baso # (Auto) 0.02 - RAD Interpretation Radiology Orders: 06/25/18 23:54 CHEST ONE VIEW [RAD] Stat - Medication Orders Current Medication Orders: Discontinued Medications Al Hydrox/Mg Hydrox/Simethicone (Maalox Plus 30 Ml) 30 ml PO STAT STA Stop: 06/25/18 00:49 Last Admin: 06/25/18 01:08 Dose: 30 ml Belladonna/Phenobarbital ( Elixir) 5 ml PO STAT STA Stop: 06/25/18 00:49 Last Admin: 06/25/18 01:08 Dose: 5 ml Lidocaine HCl (Lidocaine 2% Viscous) 15 ml MM STAT STA Stop: 06/25/18 00:49 Last Admin: 06/25/18 01:08 Dose: 15 ml - Scribe Statement The provider has reviewed the documentation as recorded by the Scribe Surya Ingram All medical record entries made by the Scribe were at my direction and personally dictated by me. I have reviewed the chart and agree that the record accurately reflects my personal performance of the history, physical exam, medical decision making, and the department course for this patient. I have also personally directed, reviewed, and agree with the discharge instructions and disposition. Disposition/Present on Arrival - Present on Arrival Any Indicators Present on Arrival: No History of DVT/PE: No History of Uncontrolled Diabetes: No Urinary Catheter: No History of Decub. Ulcer: No History Surgical Site Infection Following: None - Disposition Have Diagnosis and Disposition been Completed?: Yes Diagnosis: Reaction, situational, acute, to stress Disposition: HOME/ ROUTINE Disposition Time: 04:35 Patient Plan: Discharge Condition: GOOD Discharge Instructions (ExitCare): Anxiety, Adult (DC) Print Language: FRISIAN Additional Instructions: Keep your outpatient appointment with [facility] Services Referrals: FAMILY PROVIDER,NO [Primary Care Provider] - Follow up with primary Forms: [facility] ([place])
[2018-06-25 01:02] LABS: HCG,QUALITATIVE URINE NEGATIVE (NEGATIVE); URINE APPEARANCE SL CLOUDY (CLEAR); URINE COLOR YELLOW (YELLOW)
[2018-06-25 01:11] LABS: URINE WBC 0 - 2 /hpf (0-6)
[2018-06-25 01:12] LABS: URINE BACTERIA SMALL (NEG); URINE EPITHELIAL CELLS MANY /hpf (0-5)
[2018-06-25 01:34] LABS: BARBITURATES, UR NEGATIVE (NEGATIVE); BENZODIAZEPINES, UR NEGATIVE (NEGATIVE); OPIATES, UR NEGATIVE (NEGATIVE); PHENCYCLIDINE, UR NEGATIVE (NEGATIVE)
[2018-06-25 04:02] VITALS: BP 127/76; PULSE 80; RESP 18; O2SAT 100
--- NOTE | 2018-06-25 09:23 | RAD ---
Date of service: 06/25/2018 PROCEDURE: CHEST RADIOGRAPH, 1 VIEW HISTORY: Medical Clearance COMPARISON: 08/03/2017 FINDINGS: LUNGS: Clear. PLEURA: No pneumothorax or pleural fluid seen. CARDIOVASCULAR: Normal. OSSEOUS STRUCTURES: No significant abnormalities. VISUALIZED UPPER ABDOMEN: Normal. OTHER FINDINGS: None. IMPRESSION: No active disease.
--- NOTE | 2018-06-25 20:59 | CARD ---
APPROVED REPORT Date of service: 06/25/2018 EKG Measurement Heart [id number] <Conclusion> Normal sinus rhythm Cannot rule out Anterior infarct, age undetermined Abnormal ECG
== END 2018-06-25 04:40 | disposition home or self-care (01) ==
LOC: ED 23:16
DX: F43.0 Acute stress reaction (principal)
CPT/HCPCS: 71045; 80053; 81001; 84703; 85025; 90791; 93005; 99283; G0480

== ENCOUNTER 2018-09-25 11:11 | Emergency (ER) | payer OTHER ==
[2018-09-25 11:12] VITALS: BMI 26.6
[2018-09-25 11:29] VITALS: BP 124/82; PULSE 79; RESP 18; TEMP 98.6; O2SAT 100
[2018-09-25] MEDS ORDERED: Oxymetazoline 0.05% Nasal Spray (30 ml) NS STA (11:51)
--- NOTE | 2018-09-25 11:52 | ED PDOC ---
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 Patient states she decided to come in today due bleeding more than usual. Patient states she feels like blood stuck in the back of her throat. She denies taking any medication or doing anything to relieve symptoms. Patient denies any fever, chills, chest pain, shortness of breath, nausea, vomiting, diarrhea, urinary symptoms, back pain, neck pain, headache, dizziness, or any other complaints. PMD: None Speech Language Specialist: [id number] Time/Duration: Other (several weeks) Symptom Onset: Gradual Symptom Course: Worsening Activities at Onset: Light Context: Home Past Medical History - Provider Review Nursing Documentation Reviewed: Yes - Infectious Disease Hx of Infectious Diseases: None - Cardiac Hx Cardiac Disorders: No - Pulmonary Hx Respiratory Disorders: No - Neurological Hx Neurological Disorder: No - HEENT Hx HEENT Disorder: No - Renal Hx Renal Disorder: No - Endocrine/Metabolic Hx Endocrine Disorders: No - Hematological/Oncological Hx Blood Disorders: No - Integumentary Hx Dermatological Disorder: No - Musculoskeletal/Rheumatological Hx Musculoskeletal Disorders: No - Gastrointestinal Hx Gastrointestinal Disorders: Yes Hx Gastritis: Yes Other/Comment: GI Bleed - Genitourinary/Gynecological Hx Genitourinary Disorders: No - Psychiatric Hx Psychophysiologic Disorder: No Hx Substance Use: No - Surgical History Hx Orthopedic Surgery: Yes (knee 2014) - Anesthesia Hx Anesthesia: Yes Hx Anesthesia Reactions: No Hx Malignant Hyperthermia: No Family/Social History - Physician Review Nursing Documentation Reviewed: Yes Family/Social History: No Known Family HX Smoking Status: Never Smoked Hx Alcohol Use: No Hx Substance Use: No Allergies/Home Meds Allergies/Adverse Reactions: Allergies No Known Allergies Allergy (Verified 09/25/18 11:23) Home Medications: Home Meds Medication Instructions Recorded Confirmed RX: No Known Home Med 06/24/18 09/25/18 Review of Systems - Physician Review All systems were reviewed & negative as marked: Yes - Review of Systems Constitutional: absent: Fevers, Other (Chills) ENT: Other (nose bleed) Respiratory: Cough (cough out blood). absent: SOB Cardiovascular: absent: Chest Pain Gastrointestinal: absent: Diarrhea, Nausea, Vomiting Musculoskeletal: absent: Back Pain, Neck Pain Neurological: absent: Headache, Dizziness Physical Exam - Physical Exam Narrative Physical Exam (Text): Gen: VS reviewed, alert, well developed, well nourished, nontoxic, mild distress. ENT: Large area of excoriation in the left medial nostril. Scant amount of blood in the posterior pharynx without active bleeding. normal pharynx. Eye: EOMI, PERRL. Neck: no JVD, supple, no adenopathy. CV: regular rate, regular rhythm, no rubs, no murmur, no gallops, S1, S2, pulses equal and strong. Pulm: no distress, clear to auscultation, no wheeze, no rhonchi, breath sounds equal, no rales. Abd: soft, nontender, no guarding, no rebound, no rigidity, normal bowel sounds. Ext: no edema. Skin: good color, no rash, no cyanosis. Psych: responds appropriately to questions, normal affect. Neuro: oriented x 3, CN2-12 intact grossly, motor intact, sensation intact. Vital Signs Reviewed: Yes Vital Signs Temp Pulse Resp BP Pulse Ox 09/25/18 11:26 98.6 F 79 18 124/82 100 Temperature: Afebrile Blood Pressure: Normal Pulse: Regular Respiratory Rate: Normal Medical Decision Making ED Course and Treatment: 09/25/18 11:51 Impression: 23 year old female presents complaining of worsening nose bleed for the past serval weeks. Plan: -- Afrin 0.05% -- POC Urine Preganncy Test -- Reassess and disposition Prior Visits: Notes and results from previous visits were reviewed. Progress Notes: 09/25/18 12:29 No further bleeding after nasal spay. Minimal excoriation noted in the left nostril. Patient informed by via per diem interpreter to apply Vaseline layer for protection. Patient is stable for discharge. Patient was instructed to follow up with physician or return if symptoms worsen or new concerning symptoms arise. - Scribe Statement The provider has reviewed the documentation as recorded by the Vandana Alba Provider Scribe Attestation: All medical record entries made by the Vandana were at my direction and nain stinson dictated by me. I have reviewed the chart and agree that the record accurately reflects my personal performance of the history, physical exam, medical decision making, and the department course for this patient. I have also personally directed, reviewed, and agree with the discharge instructions and disposition. Disposition/Present on Arrival - Present on Arrival Any Indicators Present on Arrival: No History of DVT/PE: No History of Uncontrolled Diabetes: No Urinary Catheter: No History of Decub. Ulcer: No History Surgical Site Infection Following: None - Disposition Have Diagnosis and Disposition been Completed?: Yes Diagnosis: Epistaxis Disposition: HOME/ ROUTINE Disposition Time: 12:27 Patient Plan: Discharge Condition: STABLE Discharge Instructions (ExitCare): Nosebleeds Print Language: MONGOLIAN Additional Instructions: Gertrude un seguimiento con un especialista en odos, nariz y garganta para que contine sangrando la nariz. VANESSA WEINBERG, thank you for letting us take care of you today. Your provider was Dr. Jn Gold and you were treated for nosebleed. The emergency medical care you received today was directed at your acute symptoms. If you were prescribed any medication, please fill it and take as directed. It may take several days for your symptoms to resolve. Return to the Emergency Department if your symptoms worsen, do not improve, or if you have any other problems. Please contact your doctor or call one of the physicians/clinics you have been referred to that are listed on the Patient Visit Information form that is included in your discharge packet. Bring any paperwork you were given at discharge with you along with any medications you are taking to your follow up visit. Our treatment cannot replace ongoing medical care by a primary care provider outside of the emergency department. Thank you for allowing the [facility] team to be part of your care today. If you had an X-Ray or CT scan: A Radiologist will review the ED reading if any change in treatment is needed we will contact you. If you had a blood, urine, or wound culture: It will take several days for the results, if any change in treatment is needed we will contact you. If you had an STI test: It will take 48 hours for the results. Please call after 1 week if you have not heard back. Referrals: [facility] [Outside] - Follow up with primary Bib Boggs DO [Staff Provider] - Follow up with primary Forms: [facility] (Romanian), WORK NOTE
== END 2018-09-25 12:35 | disposition home or self-care (01) ==
LOC: ED 11:11
DX: R04.0 Epistaxis (principal)